=== PATIENT | female | born 1950 | race Caucasian/White ===

== ENCOUNTER 2017-03-13 00:40 | Emergency (ER) | payer BC, MEDICARE, OTHER ==
[2017-03-13 00:52] VITALS: BP 125/58
[2017-03-13] MEDS ORDERED: NAPROXEN 250 MG TABLET PO ONE (02:15)
[2017-03-13] MEDS ORDERED: LIDOCAINE 5% (700 MG) TRANSDERMAL ADH..PATCH TP ONE (02:15)
--- NOTE | 2017-03-13 02:15 | ER Document Report ---
ED General - General Chief Complaint: Low Back Pain Stated Complaint: HIP,BACK PAIN Time Seen by Provider: 03/13/17 01:43 Notes: Patient is a 66-year-old female with a past medical history of recurrent right- sided sciatic pain, morbid obesity, who presents with 2 days of severe, constant pain to her low back with associated sciatica. States that this is much more severe than any episodes of sciatica or back pain that she has had in the past. Denies any known injury that triggered the worsening of the pain. She denies any associated bowel or bladder incontinence, no urinary retention. No fever or history of IV drug use. She has been trying Tylenol and heat with minimal improvement or pain. Moving her right leg or walking worsens the pain. She has not seen her primary care doctor regarding today's concerns. TRAVEL OUTSIDE OF THE [place] IN LAST 30 DAYS: No - Related Data Allergies/Adverse Reactions: aspirin Adverse Reaction (Mild, Verified 03/13/17 00:47) GI upset Past Medical History - General Information source: Patient - Social History Smoking Status: Never Smoker Frequency of alcohol use: None Drug Abuse: None Lives with: Spouse/Significant other Family History: Reviewed & Not Pertinent Renal/ Medical History: Denies: Hx Peritoneal Dialysis Review of Systems - Review of Systems Notes: Constitutional: Negative for fever. HENT: Negative for sore throat. Eyes: Negative for visual changes. Cardiovascular: Negative for chest pain. Respiratory: Negative for shortness of breath. Gastrointestinal: Negative for abdominal pain, vomiting or diarrhea. Genitourinary: Negative for dysuria. Musculoskeletal: Positive for back pain. Skin: Negative for rash. Neurological: Negative for headaches, weakness or numbness. 10 point ROS negative except as marked above and in HPI. Physical Exam - Vital signs Vitals: Temp Pulse Resp BP Pulse Ox 97.9 F 92 20 125/58 L 99 03/13/17 00:48 03/13/17 00:48 03/13/17 00:48 03/13/17 00:48 03/13/17 00:48 Interpretation: Normal Notes: PHYSICAL EXAMINATION: GENERAL: Appears to be in pain but in no acute distress HEAD: Atraumatic, normocephalic. EYES: Pupils equal round and reactive to light, extraocular movements intact, sclera anicteric, conjunctiva are normal. ENT: nares patent, oropharynx clear without exudates. Moist mucous membranes. NECK: Normal range of motion, supple without lymphadenopathy LUNGS: Breath sounds clear to auscultation bilaterally and equal. No wheezes rales or rhonchi. HEART: Regular rate and rhythm without murmurs ABDOMEN: Soft, nontender, normoactive bowel sounds. No guarding, no rebound. No masses appreciated. EXTREMITIES: Normal range of motion, no pitting or edema. No cyanosis. Back: No midline spinal tenderness, step-offs or deformities. There is pain on palpation of the right paralumbar spinous muscles. NEUROLOGICAL: 5 out of 5 strength both distally and proximally bilateral lower extremities. 2+ patellar reflexes bilaterally. No clonus. Sensation grossly intact in the bilateral lower extremities. Patient is able to ambulate without difficulty. PSYCH: Normal mood, normal affect. SKIN: Warm, Dry, normal turgor, no rashes or lesions noted. Course - Re-evaluation Re-evalutation: 03/13/17 02:12 Presentation of a well appearing patient complaining of acute back pain. No rapid progression of symptoms, systemic symptoms including fevers, chills, weight loss, history of recent bacterial infection, bilateral symptoms, numbness , weakness, difficulty walking, urinary retention or bowel incontinence, personal history of cancer, immunosuppression, diabetes, known AAA, or history of IV drug use. Exam is without point tenderness over vertebral bodies, pulsatile abdominal mass, and patient has symmetric and intact lower extremity strength, sensation, and reflexes without clonus. 2+ symmetric medial malleolar and dorsalis pedis pulses Based on history and physical, I have a very low suspicion of a concerning etiology of pain including epidural compression syndrome, spinal infection, transverse myelitis, malignancy, abdominal aortic aneurysm, renal colic, acute lower extremity claudication, neurogenic claudication, ankylosing spondylitis, or other intra-abdominal process. Due to absence of concerning risk factors in history and physical as well as absence of rapidly progressive, severe, or bilateral symptoms, will defer imaging at this point. Plan to manage conservatively with outpatient analgesia, analgesia, and physical therapy. - Acetaminophen 650 q 4 + ibuprofen 600 q 6 - Continue normal daily activities as tolerated by pain - Provide with standard musculoskeletal back pain exercise instructions - Instruct to follow up with primary care provider if symptoms not improving - Provide careful return precautions and concerning symptoms to watch for. - Vital Signs Vital signs: Temp Pulse Resp BP Pulse Ox 97.9 F 92 20 125/58 L 99 03/13/17 00:48 03/13/17 00:48 03/13/17 00:48 03/13/17 00:48 03/13/17 00:48 Discharge - Discharge Clinical Impression: Right low back pain Qualifiers: Chronicity: acute Sciatica presence: with sciatica Sciatica laterality: sciatica of right side Qualified Code(s): M54.41 - Lumbago with sciatica, right side Condition: Good Disposition: HOME, SELF-CARE Additional Instructions: You have been seen in the Emergency Department (ED) today for back pain. Your workup and exam have not shown any acute abnormalities and you are likely suffering from muscle strain or possible problems with your discs, but there is no treatment that will fix your symptoms at this time. Please take the naproxen that has been prescribed as directed. You should also purchase a local lidocaine cream such as "aspercreme with lidocaine" and use per bottle instructions to the affected area. Apply heat to the area as often as you are able. Continue to keep active and avoid prolonged periods of bed rest. Please follow up with your doctor as soon as possible regarding today's ED visit and your back pain. Return to the ED for worsening back pain, fever, weakness or numbness of either leg, or if you develop either (1) an inability to urinate or have bowel movements, or (2) loss of your ability to control your bathroom functions (if you start having "accidents"), or if you develop other new symptoms that concern you.concern you. Prescriptions: Gabapentin 300 mg PO TID #90 capsule Naproxen 500 mg PO BID #60 tablet
[2017-03-13] MEDS ORDERED: MORPHINE SULFATE IR 15 MG TABLET PO ONE (02:25)
[2017-03-13] MEDS ORDERED: GABAPENTIN 300 MG CAPSULE PO ONE (02:25)
== END 2017-03-13 02:34 | disposition home or self-care (01) ==
LOC: ER 00:40
DX: M54.41 Lumbago with sciatica, right side (principal); M54.5 Low back pain; M25.551 Pain in right hip
CPT/HCPCS: 99283; A9270 ×3